=== PATIENT | female | born 1960 | race Caucasian/White ===

== ENCOUNTER 2024-03-21 09:34 | Emergency (ER) | payer SELFPAY ==
[2024-03-21] VITALS (7 sets, daily range): BP systolic 151–184; BP diastolic 90–107; PULSE 76–95; RESP 17–18; TEMP 36.6–37.1; O2SAT 98–100; BMI 39.7
--- NOTE | ~2024-03-21 | US_ITS ---
EXAMINATION: Noninvasive assessment of the left lower extremities with ARTERIAL DUPLEX CLINICAL INFORMATION: Left lower extremity claudication TECHNIQUE: Duplex Doppler techniques with waveform analysis and measurement of velocities in the left common femoral, profunda femoris, superficial femoral, popliteal and tibial arteries were performed. COMPARISON: None FINDINGS: DIRECT DUPLEX DOPPLER FINDINGS: LEFT LEG: Common femoral artery: 106 cm/s, phasicity: Triphasic Profunda femoris artery: 69.0 cm/s, phasicity: Biphasic Superficial femoral artery (proximal): 117 cm/s, phasicity: Triphasic Superficial femoral artery (mid): 120 cm/s, phasicity: Triphasic Superficial femoral artery (distal): 89.0 cm/s, phasicity: Triphasic Popliteal artery: 77.7 cm/s, phasicity: Triphasic Posterior tibial artery: 84.0 cm/s, phasicity: Biphasic Peroneal artery: 60.6 cm/s, phasicity: Biphasic Anterior tibial artery: 67.6 cm/s, phasicity: Biphasic Dorsalis pedis artery: 67.2 cm/s, phasicity: Biphasic Incidental note made of a Beltran's cyst in the popliteal fossa. US/US arterial duplex LE LT IMPRESSION: 1. Patent arterial flow throughout the left lower extremity without significant stenosis or occlusion 2. Beltran's cyst
--- NOTE | ~2024-03-21 | US_ITS ---
EXAMINATION: US VENOUS ULTRASOUND WITH DOPPLER LOWER EXTREMITY, LEFT CLINICAL INFORMATION: Left lower extremity pain COMPARISON: None available. TECHNIQUE: Ultrasound of the deep veins is performed from the hip to the calf with compression sonography and color and pulse Doppler assessment. Spectral analysis with color-flow imaging is performed. FINDINGS: There is normal venous compression and respiratory variation and augmented flow. The visualized common femoral vein, superficial femoral vein, profunda femoral vein, popliteal vein, and the trifurcation region shows no evidence of deep venous thrombosis. There is no significant popliteal fossa cyst. The contralateral right common femoral vein appears normal. If the patient's symptoms persist, followup ultrasound in 5 days 7 days might be of value to exclude proximal propagation from a non-visualized calf vein. US/US venous duplex LE IMPRESSION: No DVT demonstrated in the left lower extremity.
[2024-03-21 10:04] LABS: MANUAL DIFF FLAG NO
[2024-03-21 10:05] LABS: Basophils Percent Auto 0.6 % (0-2); Eosinophils Absolute Auto 0.1 X10*3/uL (0.0-0.4); Eosinophils Percent Auto 2.3 % (0-4); Hematocrit 38.1 % (37.0-47.0); Hemoglobin 13.9 g/dl (12.0-16.0); Imm Gran Abs Auto 0.01 X10*3/uL (0.00-0.03); Imm Gran Pct Auto 0.2 % (0.0-0.4); Lymphocytes Absolute Auto 1.3 X10*3/uL (1.2-4.9); Lymphocytes Percent Auto 21.2 % (20-40); Mean Corpuscular HGB Conc 36.5 g/dl (31.0-35.0); Mean Corpuscular Hemoglobin 33.5 pg (27.0-33.0); Mean Corpuscular Volume 91.8 fL (80.0-98.0); Mean Platelet Volume 9.6 fL (9.4-12.3); Monocytes Absolute Auto 0.6 X10*3/uL (0.1-1.2); Monocytes Percent Auto 10.1 % (2-11); Neutrophils Absolute Auto 4.1 x10*3/uL (2.0-8.3); Neutrophils Percent Auto 65.6 % (45-73); Platelet Count 258 X10*3/uL (160-400); Red Blood Count 4.15 X10*6/uL (4.20-5.50); Red Cell Distribution Width 13.1 % (11.0-16.0); White Blood Count 6.2 X10*3/uL (4.8-10.8)
[2024-03-21 10:28] LABS: Alanine Aminotransferase 43 U/L (0-31); Albumin Level 4.2 g/dL (3.5-5.0); Alkaline Phosphatase 82 U/L (39-117); Anion Gap 16 (12-20); Aspartate Amino Transferase 29 U/L (5-31); Bilirubin Total 0.4 mg/dL (0.0-1.0); Blood Urea Nitrogen 15 mg/dL (9-16); Calcium 9.5 mg/dL (8.4-10.2); Carbon Dioxide 23 mmol/L (22-29); Chloride 106 mmol/L (96-108); Creatinine Clr Calc Pharmacy 102.3; Estimated Glomerular Filt Rate > 60; Glucose Random 115 mg/dL (60-115); Potassium 3.3 mmol/L (3.3-5.1); Sodium 142 mmol/L (135-145); Total Protein 7.3 g/dL (6.5-8.0)
--- NOTE | 2024-03-21 12:49 | PC.NURSE ---
Pt brought back into room in wheel chair, changed over into juan. Pt reports shooting pain up left leg and in knee area. Reports some difficulty bending knee. Sensation intact, pedal pulse palpable, significant edema in left leg noted. reports not taking blood pressure meds [id number], pt reports no heart failure hx in the family.
--- NOTE | 2024-03-21 13:40 | ED_ITS ---
HPI - Extremity Injury (Lower) General Chief Complaint: Extremity Injury, Lower Stated Complaint: L leg pain Time Seen by Provider: 03/21/24 13:40 Source: patient, RN notes reviewed and old records reviewed Mode of arrival: ambulatory Limitations: no limitations History of Present Illness HPI Narrative: 63 year old female with pmhx significant for hypertension presents to the ED today for evaluation of left lower extremity pain and swelling x1 month. Endorses pain extending from just above her left into the back of her knee and inner thigh. Over the last week she's noted increased pain and minimal swelling around the knee. Pain is worse with standing and ambulating. She does admit to recently starting a new job and is concerned that being up and standing for a majority of the day has aggravated something in her leg. She states she's had to take numerous breaks during the day to rest the leg. She has been taking Ibuprofen at home with minimal relief in pain. Denies injury or truama. Denies recent travel or long car rides. Denies OCP use. Denies fevers, chills, cough, hemoptysis. Of note, patient hypertensive to 160/95 upon triage assessment. She states she hasn't taken her BP medications in weeks due to insurance issues. She denies headache, dizziness, fatigue, vision changes, chest pain, sob, palpitations, N/V. Related Data Previous Rx's ?Medication ?Instructions ?Recorded amlodipine 5 mg tablet 5 mg PO DAILY 30 days #30 tabs 03/21/24 atenolol 50 mg tablet 50 mg PO DAILY 30 days #30 tabs 03/21/24 naproxen 500 mg tablet 500 mg PO Q8-12H PRN pain (scale 03/21/24 score 4-6) #20 tabs prednisone 20 mg tablet 40 mg (2 x 20 mg) PO DAILY 4 days 03/21/24 #8 tabs Allergies Allergy/AdvReac Type Severity Reaction Status Date / Time No Known Allergies Allergy Verified 03/21/24 09:48 Review of Systems 2 Review of Systems: Constitutional: No fever, chills, fatigue, night sweats, weight changes ENT/Mouth: No ear pain, hearing loss, nasal congestion, sinus pain, rhinorrhea, sore throat Eyes: No eye pain, swelling, redness, vision changes, discharge Cardio: No chest pain, palpitations, FINCH, orthopnea, peripheral edema Pulm: No SOB, cough, sputum, wheezing, dyspnea, hemoptysis GI: No nausea, vomiting, hematemesis, abdominal pain, diarrhea, constipation, hematochezia, melena : No irregular bleeding, dysuria, frequency, urgency, hesitancy, hematuria, flank pain, urinary flow changes, urinary incontinence or retention MSK: No back pain, neck pain, joint pain, myalgias, +LLE pain/swelling Skin: No lesions, rashes Neuro: No weakness, numbness, paresthesias, LOC, dizziness, headache Psych: No anxiety/panic, depression, SI/HI, AH/VH All other systems reviewed and are negative. [facility] Past Medical History Attestation statement: The following information was validated with the patient. Source: old records reviewed and nursing notes reviewed Social History Social History Alcohol intake: current Smoked in Last 30 Days: No Advance Directives: No Advance Directives Information Provided: Yes Physical Exam 2 Vital Signs: Vital Signs: Last Vital Signs Temp 98 F 03/21/24 17:31 Pulse 84 03/21/24 17:31 Resp 17 03/21/24 17:31 BP 151/99 H 03/21/24 17:31 Pulse Ox 98 03/21/24 17:31 O2 Del Method Room Air 03/21/24 17:31 BMI result Body Mass Index 39.7 Patient hypertensive, vitals otherwise WNL Const: General: cooperative, healthy appearing and comfortable O rientation/consciousness: patient oriented x3 Limitations: no limitations HEENT: Head: Yes normal to inspection, Yes No palpable skull fracture present, Yes normocephalic and Yes atraumatic Eyes: General: appearance normal, both eyes and all related structures C onjunctivae: conjunctivae normal Sclerae: sclerae normal Pupils: Equal, round and reactive pupils present Neck: Neck: Yes normal visual inspection, Yes full ROM and Yes no lymphadenopathy Resp: Effort & Inspection: normal respiratory effort and able to speak in complete sentences Auscultation: clear to auscultation bilaterally Cardio: Rate: regular rate Rhythm: regular rhythm Back/Spine/Pelvis: Other: No midline spinous tenderness or step off deformity. No paraspinal muscle tenderness. Skin: General skin exam: no rashes or lesions noted Neuro: Other: Strength 5/5 intact throughout.?Sensation intact to light touch.? Neurovascular intact distally.? General: patient oriented x3 Cranial nerves: Yes Equal, round and reactive pupils present Extrem: Other: + left hip, knee, and ankle without join t effusion, erythema or overlying cellulitis. no overlying warmth. no palpable deformities. full ROM intact to hip, knee, and ankle of r/l lower extremity with pain elicited on flexion of left knee. Tender to palpation of posterior knee without palpable deformity, fluctuance, crepitus, masses. strength 5/5 intact throughout. sensation intact to light touch. 2+ popliteal, dp/pt pulses. cap refill <2 seconds. no calf tenderness. no pitting edema. General: Yes normal to inspection Course Course Course Narrative: 1730-- On presentation, patient's blood pressure was noted to be 160/95. Upon my initial evaluation, repeat blood pressure elevated to 183/90. Patient tells me that she typically takes amlodipine 5mg qd and atenolol 50mg qd however due to insurance issues she has not taken this medication in weeks. She denies symptoms of headache, dizziness, chest pain, palpitations, shortness of breath, presyncope. Patient received a dose of amlodipine 5 mg in ED for hypertension. Repeat BP after medication administration noted to be 184/102. A second dose of amlodipine 5mg administered. BP improved to 151/99. As patient is baseline hypertensive and has not taken anti-hypertensives in quite some time, this is likely where her blood pressure lives. There is concern for lowering bp too low at this time. Will send patient home with a script for both amlodipine and atenolol. Now that she has insurance through her new job, she states she will be able to fill these. [employer] card provided for cost. > venous duplex does not demonstrate DVT. Arterial US of LLE does not demonstrate blockage however does note incidental finding of left beltran's cyst. Give a majority of patient's discomfort is to the posterior knee and worse with flexion/ kneeling, etiology of pain likely due to beltran's cyst. There is no concern for rupture or NV compromise. Will provide patient with deny wrap for comfort. Patient to be discharged home with naproxen and short course of prednisone. Advised to follow up with her PCP as she may require corticosteroid injections. Patient has remained stable throughout ED visit today. She is ambulating with steady gait. Discussed worrisome signs and symptoms and when to return to the ED. All questions answered at this time. Patient is agreeable with disposition and stable for discharge. Medications Administered Discontinued Medications Generic Name Dose Route Start Last Admin Trade Name Red PRN Reason Stop Dose Admin Amlodipine Besylate 5 mg 03/21/24 14:23 03/21/24 14:52 Amlodipine Besylate 5 Mg Tablet PO 03/21/24 14:24 5 mg ONCE ONE Administration Protocol Amlodipine Besylate 5 mg 03/21/24 16:17 03/21/24 16:33 Amlodipine Besylate 5 Mg Tablet PO 03/21/24 16:18 5 mg ONCE ONE Administration Protocol Ketorolac Tromethamine 30 mg 03/21/24 14:23 03/21/24 14:52 Ketorolac Tromethamine 30 Mg/Ml Vial IM 03/21/24 14:24 30 mg ONCE ONE Administration Prednisone 40 mg 03/21/24 16:06 03/21/24 16:33 Prednisone 20 Mg Tablet PO 03/21/24 16:07 40 mg ONCE ONE Administration Medical Decision Making Medical Decision Making MDM Narrative: 63 year old female with pmhx significant for hypertension presents to the ED today for evaluation of left lower extremity pain and swelling x1 month. Patient hypertensive, vitals otherwise WNL. She is nontoxic-appearing and in no acute distress. Sitting on the exam bed comfortably. Ambulated to room with steady gait. On exam, skin is warm, dry, intact. left hip, knee, and ankle without joint effusion, erythema or overlying cellulitis. no overlying warmth. no palpable deformities. full ROM intact to hip, knee, and ankle of r/l lower extremity with pain elicited on flexion of left knee. Tender to palpation of posterior knee without palpable deformity, fluctuance, crepitus, masses. strength 5/5 intact throughout. sensation intact to light touch. 2+ popliteal, dp/pt pulses. cap refill <2 seconds. no calf tenderness. no pitting edema. Differential diagnosis includes ligament/tendon injury, DVT, superficial thrombosis, Beltran cyst, osteoarthritis, bursitis, tendonitis. Lower suspicion for CHF, arterial occlusion, venous stasis, venous insufficiency. Unlikely septic joint, septic arthritis, Lyme arthritis, gout, pseudogout, RA. Labs and venous duplex of the left lower extremity ordered prior to my assumption of care. Plan for antihypertensive administration for BP control. Arterial ultrasound added on due to concern for claudication. Will review and re-evaluate patient. Differential Diagnosis Differential Diagnoses: The differential diagnosis associated with the presentation includes As above Admission/Observation Not indicated Lab Data MDM Lab Attestation statement: I reviewed the patient's lab results. As above 03/21/24 10:00 03/21/24 10:00 Labs: Lab Results 03/21/24 03/21/24 Range/Units 10:00 14:57 WBC 6.2 (4.8-10.8) X10*3/uL RBC 4.15 L (4.20-5.50) X10*6/uL Hgb 13.9 (12.0-16.0) g/dl Hct 38.1 (37.0-47.0) % MCV 91.8 (80.0-98.0) fL MCH 33.5 H (27.0-33.0) pg MCHC 36.5 H (31.0-35.0) g/dl RDW 13.1 (11.0-16.0) % Plt Count 258 (160-400) X10*3/uL MPV 9.6 (9.4-12.3) fL Immature Gran % (Auto) 0.2 (0.0-0.4) % Neut % (Auto) 65.6 (45-73) % Lymph % (Auto) 21.2 (20-40) % Sharkey % (Auto) 10.1 (2-11) % Eos % (Auto) 2.3 (0-4) % Baso % (Auto) 0.6 (0-2) % Lymph # (Auto) 1.3 (1.2-4.9) X10*3/uL Sharkey # (Auto) 0.6 (0.1-1.2) X10*3/uL Eos # (Auto) 0.1 (0.0-0.4) X10*3/uL Baso # (Auto) 0.0 (0.0-0.2) X10*3/uL Abs Immat Gran (auto) 0.01 (0.00-0.03) X10*3/uL Absolute Neuts (auto) 4.1 (2.0-8.3) x10*3/uL Absolute Nucleated RBC 0.000 (0.0-0.012) X10*3/uL Nucleated RBC % (auto) 0.0 (0.0-0.2) /100WBC Sodium 142 (135-145) mmol/L Potassium 3.3 (3.3-5.1) mmol/L Chloride 106 (96-108) mmol/L Carbon Dioxide 23 (22-29) mmol/L Anion Gap 16 (12-20) BUN 15 (9-16) mg/dL Creatinine 0.78 (0.5-1.4) mg/dL Estim Creat Clear Calc 102.3 Estimated GFR > 60 Random Glucose 115 (60-115) mg/dL Calcium 9.5 (8.4-10.2) mg/dL Total Bilirubin 0.4 (0.0-1.0) mg/dL AST 29 (5-31) U/L ALT 43 H (0-31) U/L Alkaline Phosphatase 82 (39-117) U/L B-Natriuretic Peptide 84 (<100) pg/mL Total Protein 7.3 (6.5-8.0) g/dL Albumin 4.2 (3.5-5.0) g/dL Independent Interpretation I performed an independent interpretation of an: Ultrasound (Venous duplex, arterial) Interpretation: I have reviewed xray and agree with radiologist's interpretation. Radiology Impression Discussion of test interpretation with radiology: I have reviewed the radiologist's reading. Radiologist Impression: EXAMINATION: US VENOUS ULTRASOUND WITH DOPPLER LOWER EXTREMITY, LEFT CLINICAL INFORMATION: Left lower extremity pain COMPARISON: None available. TECHNIQUE: Ultrasound of the deep veins is performed from the hip to the calf with compression sonography and color and pulse Doppler assessment. Spectral analysis with color-flow imaging is performed. FINDINGS: There is normal venous compression and respiratory variation and augmented flow. The visualized common femoral vein, superficial femoral vein, profunda femoral vein, popliteal vein, and the trifurcation region shows no evidence of deep venous thrombosis. There is no significant popliteal fossa cyst. The contralateral right common femoral vein appears normal. If the patient's symptoms persist, followup ultrasound in 5 days 7 days might be of value to exclude proximal propagation from a non-visualized calf vein. US/US venous duplex LE LT IMPRESSION: No DVT demonstrated in the left lower extremity. EXAMINATION: Noninvasive assessment of the left lower extremities with ARTERIAL DUPLEX CLINICAL INFORMATION: Left lower extremity claudication TECHNIQUE: Duplex Doppler techniques with waveform analysis and measurement of velocities in the left common femoral, profunda femoris, superficial femoral, popliteal and tibial arteries were performed. COMPARISON: None FINDINGS: DIRECT DUPLEX DOPPLER FINDINGS: LEFT LEG: Common femoral artery: 106 cm/s, phasicity: Triphasic Profunda femoris artery: 69.0 cm/s, phasicity: Biphasic Superficial femoral artery (proximal): 117 cm/s, phasicity: Triphasic Superficial femoral artery (mid): 120 cm/s, phasicity: Triphasic Superficial femoral artery (distal): 89.0 cm/s, phasicity: Triphasic Popliteal artery: 77.7 cm/s, phasicity: Triphasic Posterior tibial artery: 84.0 cm/s, phasicity: Biphasic Peroneal artery: 60.6 cm/s, phasicity: Biphasic Anterior tibial artery: 67.6 cm/s, phasicity: Biphasic Dorsalis pedis artery: 67.2 cm/s, phasicity: Biphasic Incidental note made of a Beltran's cyst in the popliteal fossa. US/US arterial duplex LE LT IMPRESSION: 1. Patent arterial flow throughout the left lower extremity without significant stenosis or occlusion 2. Beltran's cyst External Record Review External record reviewed: Inpatient record, Office record, Outpatient record, Prior outpatient labs, Prior outpatient radiology, Primary care record and Outside ED record Prescription Management I considered prescription management with: Pain Medication (Naproxen) and Other (Prednisone, amlodipine, atenolol) Procedures Orthopedic Splinting/Casting Injury #1: Side: left Lower Extremity Injury Location: knee Lower Extremity Immobilizer: Deny wrap Critical Care Time Critical Care Time Critical Care Time: No Discharge Plan Discharge Clinical Impression: Synovial cyst of popliteal space [Beltran], left knee Patient Disposition: Home, Self-Care Instructions: Bakers Cyst (ED) Additional Instructions: Your labs today are reassuring. The venous ultrasound of your left leg does not show clots. The arterial ultrasound of your left leg does not show blockage however does show a Beltran's cyst behind your left knee. Treatment for this is with NSAIDs. Naproxen has been sent to your pharmacy for you to take for pain/discomfort. Do not take this with other NSAIDs such as ibuprofen as this can increase risk of GI bleeding Prednisone has been sent to your pharmacy. You were given 1 dose of this in the emergency department today. Take your next dose tomorrow. You have also been provided with referrals to primary care doctor and pain management. Amlodipine and atenolol have been sent to your pharmacy for hypertension. Take this as prescribed. Return with new or worsening symptoms. In the case of an emergency call 911. Prescriptions: New naproxen 500 mg tablet 500 mg PO Q8-12H PRN (Reason: pain (scale score 4-6)) Qty: 20 0RF prednisone 20 mg tablet 40 mg PO DAILY 4 Days Qty: 8 0RF amlodipine 5 mg tablet 5 mg PO DAILY 30 Days Qty: 30 0RF atenolol 50 mg tablet 50 mg PO DAILY 30 Days Qty: 30 0RF Referrals: [facility] [place] [Provider Group] [facility] [place] [facility]Lu[facility] [Provider Group] [facility] [place] [facility] CareCassidy [Provider Group] [facility] [place] [facility] [Provider Group] Trudy Hotl NP [Primary Care Provider] - Stand Alone Forms: Work/School Release Interventions: ED Discharge Assessment Last Done: 03/21/24 17:31 Discharge Date/Time: 03/21/24 17:32 Print Language: Burundian
[2024-03-21] MEDS: amLODIPine Besylate 5 MG TABLET PO ×2 (14:52→16:33)
[2024-03-21] MEDS: Ketorolac Tromethamine 30 MG/ML VIAL IM (14:52)
--- NOTE | 2024-03-21 14:56 | PC.NURSE ---
Meds GIVEN PER mar, Additional labs being drawn, no apparent distress noted. U/S taken awaiting results.
[2024-03-21 15:41] LABS: B Type Natriuretic Peptide 84 pg/mL (<100)
[2024-03-21] MEDS: predniSONE 20 MG TABLET 40 MG PO (16:33)
== END 2024-03-21 17:32 | disposition home or self-care (01) ==
PROVIDERS: Physician Assistant Medical; Emergency Provider Emergency Medicine Emergency Medical Services; PCP Nurse Practitioner Family
DX: M71.22 Synovial cyst of popliteal space [Baker], left knee (principal); I10 Essential (primary) hypertension; Z91.148 Patient's other noncompliance with medication regimen for other reason
CPT/HCPCS: 36415; 80053; 83880; 85025; 93926; 93971; 96372; 99284; J1885

== ENCOUNTER 2024-12-25 08:03 | Outpatient (REF) | payer OTHER, SELFPAY ==
--- OUTSIDE RECORDS SUMMARY | 2024-12-25 08:06 | XMS_ITS | Continuity of Care Document ---
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 Project Engineer Name Role Phone Jonathon BENDER, Trudy Salamanca Primary Care Physician Encounter [facility] Date(s): 11/24/24 - 12/24/24 [facility] Adult [address] [place] [address]- Encounter Type: Triage Allergies, Adverse Reactions, Alerts No Known Medication Allergies Immunizations Given and Recorded Vaccine Date Status Refusal Reason tetanus/diphtheria/pertussis, acel(Tdap) 01/14/23 Given tetanus/diphtheria/pertussis, acel(Tdap) 03/16/12 Given [id number] 12y+ bivalent booster vax 08/21/22 Recorded SARS-CoV-2 (COVID-19) mRNA-1273 vaccine 11/18/21 R ecorded SARS-CoV-2 (COVID-19) mRNA BNT-162b2 vac 12/10/20 Recorded SARS-CoV-2 (COVID-19) mRNA BNT-162b2 vac 1 11/19/20 Recorded Influenza Virus Vaccine (oldterm) 08/24/19 Recorde d tetanus-diphtheria toxoids (Td) 08/15/99 Recorded 1Result Comment: covid lot [id number] exp 02-12-2021 [facility] Medications amitriptyline 100 mg oral tablet 1 tablet, By Mouth, Daily at bedtime, # 30 tablet, 2 Refills, Maintenance, 10/13/24 12:53:00 PM EST, [id number], 170.1, cm, 01/14/23 9:33:00 EST, Height Start Date: 10/13/24 Status: Ordered Quantity: 30.0 Unit: tablet Repeat number: 1 amLODIPine 5 mg oral tablet 1 tablet, By Mouth, Daily, # 30 tablet, 2 Refills, Maintenance, 11/27/24 2:24:00 PM EST, [facility]/pharmacy #[id number], 170.1, cm, 01/14/23 9:33:00 EST, Height Start Date: 11/27/24 Status: Ordered Quantity: 30.0 Unit: tablet Repeat number: 3 atenolol 50 mg oral tablet 1, tablet, By Mouth, Daily, # 30 tablet, Refills 6, Tot. Refills 6, Maintenance, 11/27/24 2:24:00 PMEST, [id number] 170.1, cm, 01/14/23 9:33:00 EST, Height Start Date: 11/27/24 Status: Ordered Quantity: 30.0 Unit: tablet Repeat number: 7 FLUoxetine 20 mg oral capsule 40 mg, 2, capsule, By Mouth, Daily, # 60 capsule, Refills 6, Tot. Refills 6, Maintenance, 12/11/24 11:22:00 AM EST, Route to Pharmacy Electronically, [facility]/pharmacy #[id number], 170.1, cm, 12/01/24 14:07:00 EST, Height Start Date: 12/11/24 Stop Date: 07/09/25 Status: Ordered Quantity: 60.0 Unit: capsule Repeat number: 7 losartan 50 mg oral tablet 50 mg, 1, tablet, By Mouth, Daily, # 30 tablet, Refills 1, Tot. Refills 1, Maintenance, 12/01/24 1:53:00 PM EST, Route to Pharmacy Electronically, [facility]/pharmacy #[id number], Partial fill upon patient requestif the prescription is for a schedule II opioid drug., 170.1, cm, 12/01/24 13:22:00 EST, Height Start Date: 12/01/24 Status: Ordered Quantity: 30.0 Unit: tablet Repeat number: 2 Problem List Condition Confirmation Course Effective Dates Status H ealth Status Informant Anxiety Confirmed Active Breast cyst Confirmed Active Graves' disease Confirmed Active Hypercholesterolemia Confirmed Active Hypertension Confirmed Active Hyperthyroidism Confirmed Active Insomnia Confirmed Active Severe obesity Confirmed Active Social History Social History Type Response Smoking Status Former smoker; Other : teenager; entered on: 08/07/15 Sex Sex Representation Female (finding) Patient Care team information Care Team Personnel Name: Jonathon BENDER, Trudy Salamanca Position: S PCO Associate Professional Member Role: PCP Address: [address] [place] [phone]- Telecom: Care Team Related Persons Name: JACQUIE MCKEE Name: PAPA RUSSO Insurance Providers Guarantor name: CHANDRAKANT RAIF Health Plan Information #: 1 Payer: [facility] FF NON P HMO Member Number: NA Policy Number: NA Group Number: NA
--- OUTSIDE RECORDS SUMMARY | 2024-12-25 08:06 | XMS_ITS | Continuity of Care Document ---
Author Organization [facility] lt Address [address] [place] [address]- Care Team Providers Care Pattern Hanger Name Role Phone Jonathon BENDER, Trudy Salamanca Primary Care Physician Encounter [facility] Date(s): 12/01/24 - 12/08/24 [facility] [address] [place] [address]- Encounter Diagnosis Annual physical exam(Discharge Diagnosis) - 12/01/24 Hypercholesterolemia(Discharge Diagnosis) - 12/01/24 Hypertension(Discharge Diagnosis) - 12/01/24 Hyperthyroidism(Discharge Diagnosis) - 12/01/24 Anxiety(Discharge Diagnosis) - 12/01/24 Knee pain(Discharge Diagnosis) - 12/01/24 Attending Physician: Jonathon BENDER, Trudy Salamanca Encounter Type: Office Visit Allergies, Adverse Reactions, Alerts No Known Medication Allergies Immunizations Given and Recorded Vaccine Date Status Refusal Reason tetanus/diphtheria/pertussis, acel(Tdap) 01/14/23 Given tetanus/diphtheria/pertussis, acel(Tdap) 03/16/12 Given [id number] 12y+ bivalent booster vax 08/21/22 Recorded SARS-CoV-2 (COVID-19) mRNA-1273 vaccine 11/18/21 R ecorded SARS-CoV-2 (COVID-19) mRNA BNT-162b2 vac 12/10/20 Recorded SARS-CoV-2 (COVID-19) mRNA BNT-162b2 vac 1 11/19/20 Recorded Influenza Virus Vaccine (oldterm) 08/24/19 Recorde d tetanus-diphtheria toxoids (Td) 08/15/99 Recorded 1Result Comment: covid lot [id number] exp 02-12-2021 [facility] Medications amitriptyline 100 mg oral tablet 1 tablet, By Mouth, Daily at bedtime, # 30 tablet, 2 Refills, Maintenance, 10/13/24 12:53:00 PM EST, [facility] STORE [id number], 170.1, cm, 01/14/23 9:33:00 EST, Height Start Date: 10/13/24 Status: Ordered Quantity: 30.0 Unit: tablet Repeat number: 1 amLODIPine 5 mg oral tablet 1 tablet, By Mouth, Daily, # 30 tablet, 2 Refills, Maintenance, 11/27/24 2:24:00 PM EST, [facility]/pharmacy #[id number], 170.1, cm, 01/14/23 9:33:00 EST, Height Start Date: 11/27/24 Status: Ordered Quantity: 30.0 Unit: tablet Repeat number: 3 atenolol 50 mg oral tablet 1, tablet, By Mouth, Daily, # 30 tablet, Refills 6, Tot. Refills 6, Maintenance, 11/27/24 2:24:00 PMEST, Route to Pharmacy Electronically, [facility]/pharmacy #[id number], 170.1, cm, 01/14/23 9:33:00 EST, Height Start Date: 11/27/24 Status: Ordered Quantity: 30.0 Unit: tablet Repeat number: 7 FLUoxetine 20 mg oral capsule 40 mg, 2, capsule, By Mouth, Daily, # 60 capsule, Refills 0, Tot. Refills 0, Maintenance, 10/16/24 6:51:00 AM EST, Route to Pharmacy Electronically, [facility]/pharmacy #[id number], 170.1, cm, 01/14/23 9:33:00 EST, Height Start Date: 10/16/24 Stop Date: 11/15/24 Status: Ordered Quantity: 60.0 Unit: capsule Repeat number: 1 losartan 50 mg oral tablet 50 mg, 1, tablet, By Mouth, Daily, # 30 tablet, Refills 1, Tot. Refills 1, Maintenance, 12/01/24 1:53:00 PM EST, [id number] Partial fill upon patient requestif the [...] Insomnia Confirmed Active Severe obesity Confirmed Active Diagnosis Diagnosis Type Effective Dates Health Status Clinical Service Informant Annual physical exam Discharge Diagnosis 12/01/24 Hypercholesterolemia Discharge Diagnosis 12/01/24 Hypertension Discharge Diagnosis 12/01/24 Hyperthyroidism Discharge Diagnosis 12/01/24 Anxiety Discharge Diagnosis 12/01/24 Knee pain Discharge Diagnosis 12/01/24 Vital Signs Most recent to oldest [Reference Range]: 1 2 Height 170.10 cm (12/01/24 2:07 PM) 170.10 cm (12/01/24 1:22 PM) Weight 117.6 kg (12/01/24 1:22 PM) Oxygen Saturation [94-100 %] 100 % (12/01/24 1:22 PM) Pulse Rate [55-90 bpm] 78 bpm (12/01/24 1:22 PM) Body Mass Index [18.5-24.99 kg/m2] 40.64 kg/m2 *>HHI* (12/01/24 1:22 PM) Blood Pressure [90-138/55-84 mm Hg] 150/ 80mm Hg *H* (12/01/24 2:07 PM) 144/91mm Hg *H* (12/01/24 1:22 PM) Blood pressure sites Arm, left (12/01/24 1:22 PM) Weight Obtained Via Standing scale (12/01/24 1:22 PM) Social History Social History Type Response Smoking Status Former smoker; Other : teenager; entered on: 08/07/15 Sex Sex Representation Female (finding) Note * Samreen Uriostegui: PERFORM Event Display: Patient Education/Instruction Authored Date: Ambulatory Adult Visit Summary [facility] Adult [facility] [address] [place] [address] Name: CHANDRAKANT RAFI : 1960?? Visit: 12/01/2024 13:16?? Ambulatory Visit Instructions ?? Your Care Team Primary Care Provider Trudy Holt NP? This Visit Provider Trudy Holt NP Your Diagnosis Annual physical exam Hypercholesterolemia Hypertension Hyperthyroidism Anxiety Fatigue Screening for colon cancer Vitals Signs Pulse Rate: 78 bpm Height: 170.1 cm Systolic Blood Pressure:??144 mm Hg??High Weight: 117.6 kg Diastolic Blood Pressure:??91 mm Hg??High Body Mass Index:??40.64 kg/m2??Critical Oxygen Saturation: 100 % Body surface area: 2.36 What to do next Scheduled Follow-Up Appointments Wednesday 9:10 AM EST ?? With: Trudy Holt NP Where: [address] [address]- Status: Pending Follow-Up Appointments Follow Up with??Follow up, 1 Month Future Orders MM Digital Mammo Screening, Routine, Reason for Exam: Screening, screening for breast cancer, Conditional Orders: MM Diag/US Breast/Guided Asp/Breast Bx, Patient Does Not Need Assistance, Once, *Est.12/01/24 XR Knee 3 Views Left, Routine, Reason for Exam: Pain, Patient Does Not Need Assistance, Once, *Est.12/01/24 Direct LDL - Routine, Once, 12/01/24 13:41:00 EST, Future Order, [facility], Blood?? TSH - Routine, Once, 12/01/24 13:41:00 EST, Future Order, [facility], Blood?? Comprehensive Metabolic Panel - Routine, Once, 12/01/24 13:41:00 EST, Future Order, [facility], Blood?? CBC w/ Differential - Routine, Once, 12/01/24 13:41:00 EST, Future Order, [facility], Blood?? Medications The list below reflects the information in our records and provided by you today along with any changes made during this visit. Please continue your medications until treatment is completed or stopped by your provider. If this is different from the information you have or there are other questions,please contact the prescribing provider. What How Much When Instructions New Losartan (losartan 50 mg oral tablet) 1 tab(s) Oral Daily Refills: 1 Pickup at [facility]/pharmacy #[id number] Unchanged amiTRIPTYLINE (amitriptyline 100 mg oral tablet) 1 tab(s) Oral Daily at Bedtime Unchanged Amlodipine (amLODIPine 5 mg oral tablet) 1 tab(s) Oral Daily Unchanged Atenolol (atenolol 50 mg oral tablet) 1 tab(s) Oral Daily Unchanged Fluoxetine (FLUoxetine 20 mg oral capsule) 3 capsule Oral Daily Duration: 30 Days Pharmacy Information [facility]/pharmacy #[id number]: [address] [place] [phone] Test Performed Below is a partial list of the tests performed during your Visit. You may have had other tests and procedures not included in this list. Please discuss all test results with your provider. CBC w/ Differential?-- Results Pending -- Comprehensive Metabolic Panel?-- Results Pending -- Direct LDL?-- Results Pending -- TSH?-- Results Pending -- Medications and Immunizations Administered Medications Given During Visit No medications given during this visit.?? Allergies (NKA means No Known Allergies) No Known Medication Allergies Common Emergency Awareness Tips IS IT A STROKE? Act FAST and Check for these signs: FACE Does the face look uneven? ARM Does one arm drift down? SPEECH Does their speech sound strange? TIME Call at any sign of stroke ?? Heart Attack Signs Chest discomfort: Most heart attacks involve discomfort in the center of the chest and lasts more than a few minutes, or goes away and comes back. It can feel like uncomfortable pressure, squeezing, fullness or pain. Discomfort in upper body: Symptoms can include pain or discomfort in one or both arms, back, neck, jaw or stomach. Shortness of breath: With or without discomfort. Other signs: Breaking out in a cold sweat, nausea, or lightheaded. Remember, MINUTES DO MATTER. If you experience any of these heart attack warning signs, call to get immediate medical attention! ?? Smoking can increase your chances of developing chronic health problems and can cause harmful effects to other family members in your house. If you smoke, you are strongly encouraged to quit. Please call [facility] at [phone] or [phone] ([phone]) or log in to [email or web address] for referrals to smoking cessation programs. ?? The National Suicide Prevention Hotline is available 07/06 if you or someone you know needs to find a reason to keep living. By calling 0-594-994-gses (0906) you'll be connected to a skilled, trained counselor at a crisis center in your area. [facility] [employer] Portal You can view and manage your care through the patient portal or by using a health care rupali of your choosing. [employer] is a website that allows you to securely view your medical information including your hospital discharge summary, office visit summaries, medications and follow-up visits. You can also request appointments, renew medications, and request access to your medical information using a health care rupali of your choosing, or just ask a question. You can enroll at [email or web address] or register during your next office visit. [facility], in keeping with [facility] guidance, no longer requires face masks for staff, patientsor visitors in most situations. Similiar to time spent indoors at other locations, there is the chance that you were exposed to repiratory viruses during your time with us (such as flu or COVID-19). If you develop symptoms concerning for a viral respiratory infection, please seek testing (and treatment if indicated) from your medical provider or home test kit. ?? Disclaimer: The information provided is of a general nature and is intended to be used in conjunction with the recommendations and advice of your health care practitioner. Every effort has been made to ensure that the information provided is accurate and complete at the time it is provided to you however, as your needs change, or, as new information becomes available, different or additional instructions may be required. ?? If you have questions, please consult with your primary care provider or pharmacist, as appropriate. This information is not intended to serve as substitution for assessment and evaluation by a qualified health care provider. If you do not have a primary care provider, you may find a [facility] provider by calling [facility] at [phone]. Patient Care team information Care Team Personnel Name: Trudy Holt NP Position: [facility] PCO Associate Professional Member Role: PCP Address: [address] [place] [address]- Telecom: Care Team Related Persons Name: JACQUIE MCKEE Name: PAPA RUSSO Insurance Providers Guarantor name: CHANDRAK[facility] Plan Information #: 3 Payer: [employer] Member Number: [id number] Policy Number: NA Group Number: [id number] Health Plan Information #: 2 Payer: SELF PAY INSURANCE Member Number: NA Policy Number: NA Group Number: NA Health Plan Information #: 1 Payer: [employer] FF NON BHP O Member Number: [id number] Policy Number: [place] Group Number: [id number]
== END 2024-12-25 08:04 | disposition home or self-care (01) ==
LOC: HO.HOSX 08:03
PROVIDERS: Visit Provider Physician Assistant
DX: Z13.89 Encounter for screening for other disorder (principal)